=== PATIENT | female | born 1975 | race Caucasian/White ===

== ENCOUNTER 2025-05-05 23:52 | Emergency (ER) | payer OTHER ==
[~2025-05-05] VITALS: Ht 170.2 cm; Wt 130.8 kg
[2025-05-06] MEDS: ONDANSETRON ODT 4 MG TAB PO ONE (00:51)
[2025-05-06] MEDS: KETOROLAC TROMETH 30 MG/ML 1ML VIAL IM ONE (00:52)
[2025-05-06 01:00] VITALS: PULSE 86; RESP 15; O2SAT 94
--- NOTE | 2025-05-06 01:52 | DVH ---
Exam: CT CT AB PEL WO CON-NO ORAL OR IV History: Right flank pain Comparison Study: None TECHNIQUE: Multidetector CT of the abdomen and pelvis was performed from lung bases to pubic symphysi s. Imaging was performed without IV contrast. Axial, coronal, and sagittal multiplanar reformats were obtained from the axial data set by the technologist. RADIATION DOSE: CTDI vol 27.37 mGy. DLP 1627.84 mGy.cm Findings: Limited evaluation of the solid organs in the absence of IV contrast. Liver: Hepatomegaly and hepatic steatosis. Spleen: Unremarkable. Pancreas: Unremarkable. Gallbladder: Prior cholecystectomy. Adrenals: Unremarkable Kidneys: A 2 mm calculus is seen in the region of the right ureterovesicular junction. There is mild upstream right hydroureteronephrosis and right perinephric stranding. Punctate nonobstructing left r enal calculus . No left hydronephrosis Pelvic Viscera: Unremarkable. Vasculature: Unremarkable. Retroperitoneum: Unremarkable. Bowel: Colonic diverticulosis without CT evidence of diverticulitis. No bowel obstruction. No CT evid ence of appendicitis. Musculoskeletal: Unremarkable. Soft tissues: Unremarkable. Lungs: The lung bases are clear. Impression: 1. 2 mm calculus situated near the right ureterovesicular junction with mild right hydroureteronephro sis and right perinephric stranding. 2. Incidental findings as detailed.
[2025-05-06 02:10] LABS: Hematocrit 36.3 % (36.0-46.0); Hemoglobin 12.1 g/dL (12.2-16.2); Mean Corpuscular Hemoglobin 27.8 pg (28.0-32.0); Mean Corpuscular Volume 83.1 fL (80.0-100.0); Nucleated Red Blood Cells % 0.0 %
--- NOTE | 2025-05-06 02:15 | ED.PDOC ---
History of Present Illness HPI Comments 50-year-old female presents with sister for chief complaint of right flank pain, that radiates to her right abdomen, with associated increase urine frequency and oliguria, nausea, and hot flashes. Symptoms are reported to have begun 4 hours prior to arrival, suddenly unprovoked, with no prior history of in the past. Patient has a 7/10 severity, and sharp in quality. She reports taking ibuprofen and magnesium citrate to manage symptoms, with no relief or improvement. Bowel movements reported to be normal. She endorses on no modifiers. Patient denies having any vomiting, diarrhea, constipation, dysuria, hematuria, or further associated symptoms. Only significant history of hypertension, pituitary tumor status post craniotomy, cholecystectomy, and hearing impairment. Chief Complaint: Flank Pain Time Seen by MD: 00:15 Primary Care Provider: CHRIS Reviewed Notes: Nurses Notes, Medications, Allergies Allergies: Coded Allergies: NO KNOWN ALLERGIES (Unverified , 10/17/13) Home Meds Active Scripts Tamsulosin Hcl (Flomax) 0.4 Mg Cap, 1 CAP PO DAILY for 7 Days, #30 CAP 11 Refills Prov:SONIA SHARPE MD 05/06/25 Information Source: Patient Mode of Arrival: Ambulatory Severity: Moderate Timing: Hours Duration: Since onset Prehospital treatment: Pain Meds (Ibuprofen), Treatment (Magnesium citrate) Review of Systems: REVIEW OF SYSTEMS: Hot flashes. No fever, no chills, or fatigue HEENT: No sore throat, no earache, no congestion, no neck pain. Cardiac: No chest pain. No palpitations. Lungs: No shortness of breath, no cough. GI: nausea, no vomiting, no diarrhea, no constipation, no abdominal pain : right flank pain. increase urine frequency and oliguria. No dysuria, or urgency. No hematuria. Musculoskeletal: No joint pain , no joint swelling, no extremity edema. Skin: No rash, no itching. Neuro: No headache, no dizziness, no weakness Vital Signs Vital Signs Date Time Temp Pulse Resp B/P (MAP) Pulse Ox O2 Delivery O2 Flow Rate FiO2 05/06/25 07:37 89 15 95 Room Air* 0 21 05/06/25 07:30 97.9 122/79 (93) 97.9 Physical Exam General: Awake, alert and oriented. No acute distress. Skin: Skin in warm, dry and intact. Appropriate color for ethnicity. HEENT: The head is normocephalic and atraumatic. Conjunctivae are clear without exudates or hemorrhage. Sclera is non-icteric. EOM are intact. No signs of nystagmus. Eyelids are normal in appearance without swelling or lesions. Oral mucosa is pink and moist Neck: The neck is supple with normal range of motion. No JVD. Cardiac: Heart rate and rhythm are normal. No murmurs, gallops, or rubs are auscultated. Respiratory: No signs of respiratory distress. Lung sounds are clear in all lobes bilaterally without rales, rhonchi, or wheezes. Abdominal: Abdomen is soft, non-tender without distention, guarding or rigidity. Bowel sounds are present and normoactive in all four quadrants. Musculoskeletal: Right flank tenderness, no CVA tenderness. Extremities: Upper and lower extremities are atraumatic in appearance without deformity or edema. Neurological: The patient is awake, alert and oriented to person, place, and time with normal speech. Speech is clear. There is no facial asymmetry. Psychiatric: Appropriate mood and affect. Good judgement and insight. Past Medical History PAST MEDICAL HISTORY: HTN Past Medical History (Other): Pituitary tumor status post craniotomy Hearing impairment Surgical History: Cholecystectomy TELEMARKETING REPRESENTATIVE History: No Pertinent TELEMARKETING REPRESENTATIVE History Family History Family History: Reviewed,noncontributory to illness, No family hx of DM, No family hx of HTN Social History Smoker: Non-Smoker Alcohol: Occasionally Drugs: Denies Drug Use Lives In: Home Was a procedure done? Was a procedure done?: No Differential Dx Considerations may include: Differential diagnosis includes but is not limited to pyelonephritis, nephrolithiasis, AAA, musculoskeletal pain, urinary tract infection, cholecystitis, appendicitis, other X-Ray, Labs, Meds, VS Vital Signs Date Time Temp Pulse Resp B/P (MAP) Pulse Ox O2 Delivery O2 Flow Rate FiO2 05/06/25 07:37 89 15 95 Room Air* 0 21 05/06/25 07:30 97.9 91 12 122/79 (93) 95 97.9 05/06/25 06:25 86 19 129/83 (98) 91 05/06/25 04:30 78 16 120/71 (87) 98 05/06/25 04:01 83 05/06/25 02:30 84 16 145/93 (110) 93 7/8/25 01:00 86 15 94 Room Air* 0 21 05/06/25 00:45 97.6 80 15 148/91 (110) 95 97.6 05/06/25 00:17 97.6 84 16 163/98 (119) 96 97.6 Lab Test 05/06/25 06:08 05/06/25 01:30 Range/Units Urine Color Light-yellow Yellow Urine Clarity Clear Clear Urine pH 6.0 5.0-9.0 Urine Specific Taylor 1.025 1.001-1.035 Urine Protein Negative Negative Urine Ketones Negative Negative Urine Blood 2+ H Negative /uL Urine Nitrite Negative Negative Urine Bilirubin Negative Negative Urine Urobilinogen Normal Negative mg/dL Urine Leukocyte Esterase Negative Negative /uL Urine RBC 157 0 - 4 /hpf Urine Microscopic WBC 1 0-5 /HPF Urine Squamous Epithelial Cells Few <5 /hpf Urine Bacteria Few H None Seen /hpf Urine Glucose Normal Normal mg/dL White Blood Count 13.3 H 4.4-10.8 10^3/uL Red Blood Count 4.36 4.0-5.20 10^6/uL Hemoglobin 12.1 L 12.2-16.2 g/dL Hematocrit 36.3 36.0-46.0 % Mean Corpuscular Volume 83.1 80.0-100.0 fL Mean Corpuscular Hemoglobin 27.8 L 28.0-32.0 pg Mean Corpuscular Hemoglobin Concent 33.5 32.0-36.0 g/dL Red Cell Distribution Width 13.6 11.8-14.3 % Platelet Count 408 140-450 10^3/uL Mean Platelet Volume 8.0 6.9-10.8 fL Neutrophils (%) (Auto) 85.9 H 37.0-80.0 % Lymphocytes (%) (Auto) 8.6 L 10.0-50.0 % Monocytes (%) (Auto) 4.8 0.0-12.0 % Eosinophils (%) (Auto) 0.4 0.0-7.0 % Basophils (%) (Auto) 0.3 0.0-2.0 % Neutrophils # (Auto) 11.4 H 1.6-8.6 10 ^3/uL Lymphocytes # (Auto) 1.1 0.4-5.4 10 ^3/uL Monocytes # (Auto) 0.6 0-1.3 10 ^3/uL Eosinophils # (Auto) 0.1 0-0.8 10 ^3/uL Basophils # (Auto) 0 0-0.2 10 ^3/uL Nucleated Red Blood Cells 0.0 % Sodium Level 141 136-145 mmol/L Potassium Level 3.8 3.5-5.1 mmol/L Chloride Level 106 98-107 mmol/L Carbon Dioxide Level 25 20-31 mmol/L Anion Gap 10 5-15 Blood Urea Nitrogen 15 9-23 mg/dL Creatinine 1.18 H 0.550-1.02 mg/dL Glomerular Filtration Rate Calc 57 >90 mL/min BUN/Creatinine Ratio 12.7 10.0-20.0 Serum Glucose 119 H 74-106 mg/dL Calcium Level 9.3 8.7-10.4 mg/dL Total Bilirubin 0.3 0.2-1.0 mg/dL Aspartate Amino Transferase (AST) 32 13-40 U/L Alanine Aminotransferase (ALT) 37 7-40 U/L Alkaline Phosphatase 99 46-116 U/L Total Protein 7.6 5.7-8.2 g/dL Albumin 4.5 3.2-4.8 g/dL Current Medications Medications (Trade) Dose Ordered Sig/Tory Route Start Time Stop Time Status Last Admin Ketorolac Tromethamine (Toradol Injection) 30 mg ONCE ONCE IM 05/06/25 00:30 05/06/25 00:31 ID 05/06/25 00:52 Tramadol HCl (Ultram) 50 mg ONCE ONCE PO 05/06/25 00:30 05/06/25 00:31 ID 05/06/25 00:52 Ondansetron HCl (Zofran Po) 4 mg ONCE ONCE PO 05/06/25 00:30 05/06/25 00:31 ID 05/06/25 00:51 Sodium Chloride 1,000 ml @ 1,000 mls/hr Q1H ONCE IV 05/06/25 02:45 05/06/25 03:44 ID 05/06/25 02:52 Sodium Chloride 1,000 ml @ 1,000 mls/hr Q1H ONCE IV 05/06/25 05:15 05/06/25 06:14 ID 05/06/25 05:11 Ceftriaxone Sodium 50 ml @ 100 mls/hr ONCE ONCE IV 05/06/25 05:15 05/06/25 05:44 DC 05/06/25 05:36 [place] [id number] Ph: [phone] DIAGNOSTIC IMAGING Diagnostic Imaging Report : [id number] Signed PATIENT: JASMINA GILL ACCT: [id number] UNIT: [id number] : 1975 LOC: ER ROOM / BED: / AGE / SEX: 50 / F ADM STATUS: REG ER SERVICE [id number] ORDERING PHYSICIAN: WADE PENG MD PROCEDURE(s): ABPL - CT AB PEL WO CON-NO ORAL OR IV REASON: Right flank pain ORDER NUMBER(s): [id number], ACCESSION NUMBER(s): [id number] Exam: CT CT AB PEL WO CON-NO ORAL OR IV History: Right flank pain Comparison Study: None TECHNIQUE: Multidetector CT of the abdomen and pelvis was performed from lung bases to pubic symphysis. Imaging was performed without IV contrast. Axial, coronal, and sagittal multiplanar reformats were obtained from the axial data set by the technologist. RADIATION DOSE: CTDI vol 27.37 mGy. DLP 1627.84 mGy.cm Findings: Limited evaluation of the solid organs in the absence of IV contrast. Liver: Hepatomegaly and hepatic steatosis. Spleen: Unremarkable. Pancreas: Unremarkable. Gallbladder: Prior cholecystectomy. Adrenals: Unremarkable Kidneys: A 2 mm calculus is seen in the region of the right ureterovesicular junction. There is mild upstream right hydroureteronephrosis and right perinephric stranding. Punctate nonobstructing left renal calculus . No left hydronephrosis Pelvic Viscera: Unremarkable. Vasculature: Unremarkable. Retroperitoneum: Unremarkable. Bowel: Colonic diverticulosis without CT evidence of diverticulitis. No bowel obstruction. No CT evidence of appendicitis. Musculoskeletal: Unremarkable. Soft tissues: Unremarkable. Lungs: The lung bases are clear. Impression: 1. 2 mm calculus situated near the right ureterovesicular junction with mild right hydroureteronephrosis and right perinephric stranding. 2. Incidental findings as detailed. ATED BY: YULIANA ARREOLA MD DICTATED DATE/TIME: 05/06/25147 SIGNED BY: YULIANA ARREOLA MD SIGNED DATE/TIME: 05/06/25147 CC: Time of 1ST Reevaluation: 00:45 Reevaluation 1ST: Unchanged Patient Education/Counseling: Treatment, Need For Follow Up Family Education/Counseling: Treatment, Need For Follow Up Change of Shift?: Yes (Signed out to Dr. Collado at 6:00 a.m. pending urinalysis results.) SEPSIS Sepsis Screen Date sepsis recognized/suspect: May 06, 2025 Time Sepsis recognized/suspect: 001 Recent Procedure: No On Antibiotic Therapy: No Respiratory Rate >20: No Heart Rate >90: No Temp<36 C (96.8 F) or >38.3 C: No SBP <90 or MAP <65 mmHG: No New Acute Mental Status Change: No Is the patient on CPAP, BIPAP,: No Physician Orders Ct Ab Pel Wo Con-No Oral Or Iv (05/06/25 00:28) Vital Signs Date Time Temp Pulse Resp B/P (MAP) Pulse Ox O2 Delivery O2 Flow Rate FiO2 05/06/25 07:37 89 15 95 Room Air* 0 05/06/25 07:30 97.9 91 12 122/79 (93) 95 97.9 05/06/25 06:25 86 19 129/83 (98) 91 05/06/25 04:30 78 16 120/71 (87) 98 05/06/25 04:01 83 05/06/25 02:30 84 16 145/93 (110) 93 05/06/25 01:00 86 15 94 Room Air* 0 05/06/25 00:45 97.6 80 15 148/91 (110) 95 97.6 05/06/25 00:17 97.6 84 16 163/98 (119) 96 97.6 Laboratory Tests Test 05/06/25 01:30 White Blood Count 13.3 10^3/uL (4.4-10.8) H Departure 1 Departure Time of Disposition: 07:21 (Patient presented with abdominal pain that was concerning for possible appendicits, gastritis, cholecystitis, colitis, gastroenteritis, or orther possible surgical emergency. Data: 1. I ordered and reviewed the result of at least 3 labs including a CBC, BMP, and Urinalysis. 2. I independently interpreted the following tests: CT Abdoment and Pelvis is concerning for ureteral colic .Risk:This patient has a high risk of morbidity due to further diagnostic testing or treatment and may suffer from an acute abdominal process disorder. Fortunately workup reveals ureteral colic and patient can be safely discharged to home with outpatient follow up.) Impression: Primary Impression: Ureteral colic Disposition: HOME / SELF CARE / HOMELESS Condition: Stable Additional Instructions: You have a kidney stone. You were prescribed flomax. Please take as directed. For pain you can take the followinam: Ibuprofen 400mg with food Noon: Acetaminophen 1000mg 4pm: Ibuprofen 400mg with food 8pm: Acetaminophen 1000mg Please take as directed. You should follow up with your regular doctor or a urologist within one week to ensure you are doing better. If your symptoms worsen or you have any other concerns then please return to the ER. e-Prescriptions Tamsulosin Hcl (Flomax) 0.4 Mg Cap 1 CAP PO DAILY for 7 Days, #30 CAP 11 Refills Prov: SONIA SHARPE MD 05/06/25 Discharged With: Self Comments Extensive evaluation was performed in attempt to identify or rule out: (See differential diagnosis section) The following tests were ordered, and results were reviewed by me and discussed with patient: (See diagnostic results section) The following test were independently interpreted by me: N/A I reviewed and agreed with the following test results read by other providers: CT abdomen and pelvis without contrast I reviewed the following notes from the pt's past medical encounters: October 17, 2013 encounter for nausea and vomiting and diarrhea Additional information was gathered from interviewing the following independent historians: Patient's sister at bedside Discussion of management or test interpretation with external physician/other qualified health care worker: N/A Critical Care Note Critical Care Time?: No Stability Stability form required: No Heart Score Heart Score: Heart Score Response (Comments) Value History N/A 0 EKG N/A 0 Age N/A 0 Risk Factors N/A 0 Troponin N/A 0 Total 0 I personally scribed for WADE PENG MD ([email or web address]) on 05/06/25 at 02:15. Electronically submitted by Christopher Metzger [email or web address]). WADE PENG MD May 06, 2025 02:15 SONIA SHARPE MD May 06, 2025 07:23
[2025-05-06 02:19] LABS: Alanine Aminotransferase 37 U/L (7-40); Albumin 4.5 g/dL (3.2-4.8); Alkaline Phosphatase 99 U/L (46-116); Anion Gap 10 (5-15); BUN/Creatinine Ratio 12.7 (10.0-20.0); Bilirubin, Total 0.3 mg/dL (0.2-1.0); Blood Urea Nitrogen 15 mg/dL (9-23); Calcium 9.3 mg/dL (8.7-10.4); Carbon Dioxide 25 mmol/L (20-31); Chloride 106 mmol/L (98-107); Potassium 3.8 mmol/L (3.5-5.1); Sodium 141 mmol/L (136-145); Total Protein 7.6 g/dL (5.7-8.2)
[2025-05-06 02:24] LABS: Glucose 119 mg/dL (74-106)
[2025-05-06] MEDS: SODIUM CHLORIDE 0.9% 1,000 ML IV ONE ×2 (02:52→05:11)
[2025-05-06] MEDS: cefTRIAXone 1GM/50ML D5W 50 ML IV ONE (05:36)
[2025-05-06 06:52] LABS: Urine Protein, UAD Negative (Negative)
[2025-05-06] MEDS ORDERED: TAMS-35 PO (07:23)
[2025-05-06 07:30] VITALS: BP 122/79; TEMP 97.9
[2025-05-06 07:37] VITALS: PULSE 89; RESP 15; O2SAT 95
== END 2025-05-06 07:41 | disposition home or self-care (01) ==
LOC: ER 23:52
DX: N23 Unspecified renal colic (principal); I10 Essential (primary) hypertension; Z98.890 Other specified postprocedural states; Z90.49 Acquired absence of other specified parts of digestive tract
CPT/HCPCS: 36415; 74176; 80053; 81001; 85025; 96361; 96365; 96372; 99285; J0696; J1885; J7030; Q0162